=== PATIENT | female | born 1980 | race Caucasian/White ===

== ENCOUNTER 2020-10-20 11:23 | Inpatient (IN) | payer OTHER ==
[~2020-10-20] VITALS: Ht 149.9 cm; Wt 75.9 kg
[2020-10-20 12:36] LABS: GRAN # 3.6 (1.4-6.5); GRAN % 76.6 % (42.2-75.2); HEMOGLOBIN 10.5 g/dl (12.5-16.0); LYMPH # 0.8 (1.2-3.4); LYMPH % 16.9 % (20.0-51.0); MEAN CELL VOLUME 74 fl (80.0-100.0); MEAN CORPUSCULAR HEMOGLOBIN 22 pg (27.0-31.0); MEAN CORPUSCULAR HGB CONC 29 g/dl (33.0-37.0); MEAN PLATELET VOLUME 9.6 fl (7.4-10.4); MONO # 0.3 (0.1-0.6); MONO % 5.6 % (1.7-9.3); PLATELET COUNT 180 K/mm3 (130-400); RED BLOOD COUNT 4.88 M/mm3 (4.10-5.30); REDCELL DISTRIBUTION WIDTH-CV 17.6 % (11.5-14.5)
[2020-10-20 12:50] LABS: ALBUMIN 3.8 gm/dL (3.5-5.0); BILIRUBIN,TOTAL 0.3 mg/dL (0.0-1.0); CALCIUM 8.5 mg/dL (8.4-10.2); CREATININE, serum 0.82 (0.52-1.25); POTASSIUM 3.6 mmol/L (3.4-5.0); TOTAL PROTEIN 7.2 gm/dL (6.4-8.2)
[2020-10-20 13:07] LABS: C-REACTIVE PROTEIN 18.5 mg/dL (0.0-0.9)
--- NOTE | 2020-10-20 14:19 | NUR ---
Report recieved from GERARDO Frederick.
--- NOTE | 2020-10-20 15:00 | NUR ---
Patient admitted from the ED for low SATS r/t covid. Upon initial assessment, patient requiring 5L of O2 via nasal cannula, lungs sound diminished, patient not visibly SOA. Normal S1 and S2 sounds present, radial and pedal pulses +2 bilaterally, bowel sounds present in all four quadrants, patient A&O. VSS. Scheduled medication given. Patient denies any pain, discomfort, or further needs at this time. Will continue to monitor. Call light in reach.
[2020-10-20 15:30] VITALS: BP 126/76; PULSE 100; TEMP 99.9
[2020-10-20 15:37] VITALS: BP 126/76; PULSE 75; TEMP 99.9
[2020-10-20 18:36] VITALS: BP 122/81; PULSE 87; TEMP 98.7
[2020-10-20 21:20] VITALS: BP 129/83; PULSE 86; TEMP 98.1
--- NOTE | 2020-10-20 22:47 | NUR ---
Shift assessment completed. Patient alert and oriented. Patient currently on 5L via NC. Patient denies SOB or dyspnea while at rest. Patient denies any pain or discomfort. VS stable. No fever and no signs of respiratory distress noted. All scheduled meds given per JUN. Call light within reach. Will continue to monitor.
[2020-10-20 23:59] VITALS: BP 112/72; PULSE 81; TEMP 98.8
[2020-10-21 06:18] VITALS: BP 136/91; PULSE 86; TEMP 98.5
[2020-10-21 06:43] LABS: GRAN # 3.5 (1.4-6.5); GRAN % 77.5 % (42.2-75.2); HEMOGLOBIN 10.4 g/dl (12.5-16.0); LYMPH # 0.7 (1.2-3.4); LYMPH % 14.5 % (20.0-51.0); MEAN CELL VOLUME 75 fl (80.0-100.0); MEAN CORPUSCULAR HEMOGLOBIN 22 pg (27.0-31.0); MEAN CORPUSCULAR HGB CONC 29 g/dl (33.0-37.0); MEAN PLATELET VOLUME 9.8 fl (7.4-10.4); MONO # 0.3 (0.1-0.6); MONO % 6.7 % (1.7-9.3); PLATELET COUNT 186 K/mm3 (130-400); RED BLOOD COUNT 4.82 M/mm3 (4.10-5.30); REDCELL DISTRIBUTION WIDTH-CV 17.8 % (11.5-14.5)
[2020-10-21 06:46] LABS: HEMATOCRIT 35.9 % (37.0-47.0)
[2020-10-21 06:47] LABS: CREATININE, serum 0.53 (0.52-1.25); MAGNESIUM 2.1 mg/dL (1.6-2.3); POTASSIUM 3.7 mmol/L (3.4-5.0)
--- NOTE | 2020-10-21 07:51 | NUR ---
Scheduled medications given. Shift assessment preformed. Patient currently requiring 5L of 02 via nasal cannula. No signs of SOA at this time. Patient denies any N/V/D and is afebrile. Patient denies any pain, discomfort, or futher needs at this time. Will continue to monitor. Call light in reach.
[2020-10-21 08:40] VITALS: BP 119/68; PULSE 92; TEMP 99.2
--- NOTE | 2020-10-21 09:14 | NUR ---
The patient is COVID positive. SW contacted the patient's room phone to discuss discharge plan. The patient lives alone in [place]. She states that she does not have any family that lives nearby. She reports independence with ADLs and does not have any DME. The patient does not have a PCP. The patient was interested in getting set up with a PCP and getting a list of [facility] providers. SW collaborated with the PIT CLERK and the Infectious Control Nurse and asked that they bring in the list of providers to the patient, the next time the RN goes into the room. The patient does not have a DPOA-HC. She reports that she is not and does not have any children. Her parents are her next of kin: Kyle Vincent (ph#[phone]) and Salvatore Goddard. Kyle lives in [place], [place]. The patient plans to return home upon discharge. The patient is currently on 5 liters of oxygen. SW to continue to monitor. *Discharge plan: home*
[2020-10-21 11:43] VITALS: BP 137/82; PULSE 97; TEMP 98.6
--- NOTE | 2020-10-21 18:00 | NUR ---
Patient has had an ok day. VSS. Patient is currently requiring 5L of O2 and is experiencing dyspnea during exertion. Patient denies any pain, discomfort, or further needs at this time. Will continue to monitor. Call light in reach.
[2020-10-21 18:08] VITALS: BP 134/89; PULSE 94; TEMP 98.7
[2020-10-21 19:45] VITALS: BP 142/86; PULSE 108; TEMP 98.5
--- NOTE | 2020-10-21 23:19 | NUR ---
Pt has been ok but desat with exertion. Pt is currently on 5.5 L of o2. Will continue to monitor.
--- NOTE | 2020-10-21 23:48 | NUR ---
Pt desat without exertion. pt is currently on 7 L of o2. will continue to monitor.
[2020-10-22] VITALS: BP 137/88; PULSE 89; TEMP 98.9
[2020-10-22 04:34] VITALS: BP 133/88; PULSE 89; TEMP 99.1
--- NOTE | 2020-10-22 07:20 | NUR ---
Following report with GERARDO Zuniga, this nurse enters room briefly, RT just finishing in room. O2 provided via HFNC at 8 L/min. Pt denies further needs at this time. Call light in reach.
[2020-10-22 07:59] VITALS: BP 143/87; PULSE 89; TEMP 98.4
--- NOTE | 2020-10-22 08:40 | NUR ---
Assessment complete. Pt sitting up in bed, A&O x [address] providing 8 L/min O2. Pt reports pain to left abd that is stabbing and 9 out of 10 when coughing but 1 out of 10 when at rest. This nurse offers Tylenol but pt refuses at this time. PRN cough medicine offered and administered. Pt states, "they changed by nasal cannula to a bigger one that is now too big for my nose so I have to breathe through my mouth which dries out my throat and causes me to start coughing." This nurse discusses possibly switching to a mask, will review plan with RT and adjust accordingly. No further needs reported. Call light in reach.
--- NOTE | 2020-10-22 09:20 | NUR ---
HFNC and bubbler removed and replaced with oxymask, O2 remains at 8 L/min. Pt reports feeling more comfortable. This nurse reminds pt to call when needing to eat so we can change back to the HFNC, pt verbalizes understanding. No further needs reported. Call light in reach.
[2020-10-22 12:13] VITALS: BP 131/83; PULSE 85; TEMP 98.5
--- NOTE | 2020-10-22 15:00 | NUR ---
PRN pain medication administered per new order per pt's request d/t back pain occurring along with worsening abd pain with coughing. Provider notified of increased pain. No further needs reported. Call light in reach.
[2020-10-22 16:12] VITALS: BP 130/87; PULSE 84; TEMP 98.5
[2020-10-22 19:40] VITALS: BP 149/92; PULSE 86; TEMP 98.6
[2020-10-23] VITALS (7 sets, daily range): BP systolic 129–159; BP diastolic 82–100; PULSE 77–88; TEMP 98.1–99.1
--- NOTE | 2020-10-23 02:06 | NUR ---
Pt has been ok. Currently on 8 L HFNC. Pain rated 6/10. Narco was given. Will continue to monitor.
[2020-10-23 07:55] LABS: HEMATOCRIT 37.7 % (37.0-47.0); HEMOGLOBIN 10.9 g/dl (12.5-16.0); MEAN CELL VOLUME 75 fl (80.0-100.0); MEAN CORPUSCULAR HEMOGLOBIN 22 pg (27.0-31.0); MEAN CORPUSCULAR HGB CONC 29 g/dl (33.0-37.0); MEAN PLATELET VOLUME 9.9 fl (7.4-10.4); RED BLOOD COUNT 5.02 M/mm3 (4.10-5.30); REDCELL DISTRIBUTION WIDTH-CV 18.4 % (11.5-14.5)
[2020-10-23 07:55] LABS: ARTERIAL BLD GAS O2 SATURATION 92.9 % (92-100); ARTERIAL BLD GAS TCO2 CT 25.4; ARTERIAL BLOOD GAS BASE EXCESS 1.2 (-2-2); ARTERIAL BLOOD GAS HCO3 24.4 meq/L (22-26); ARTERIAL BLOOD GAS PCO2 33.7 mmHg (35-45); ARTERIAL BLOOD GAS PO2 64.6 mmHg (80-100); ARTERIAL BLOOD GAS pH 7.48 (7.35-7.45)
[2020-10-23 07:57] LABS: PLATELET COUNT 374 K/mm3 (130-400)
[2020-10-23 08:12] LABS: C-REACTIVE PROTEIN 3.2 mg/dL (0.0-0.9); CALCIUM 8.5 mg/dL (8.4-10.2); CREATININE, serum 0.67 (0.52-1.25); POTASSIUM 3.7 mmol/L (3.4-5.0)
--- NOTE | 2020-10-23 08:24 | NUR ---
Pt assessment complete. Pt is laying in bed upon entry, she is A/O x4. Her breathing is even and unlabored on Airvo, pt does get dyspneic with any movement. Dry cough present, refusing cough medication at this time. Reports intermittent LLQ pain to abdomen, no N/V. Pt has no further needs at this time. Call light within reach.
[2020-10-23 08:26] LABS: BAND 7 % (0-10); HYPOCHROMIA 1+; LYMPHOCYTE 16 % (20.0-51.0); NEUTROPHILS 72 % (42.0-75.2); OVALOCYTES 1+; PLATELET ESTIMATE NORMAL (NORMAL)
--- NOTE | 2020-10-23 19:00 | NUR ---
Pt continued on same amount of O2 via airvo, patient concerned how she will sleep and eat with oxygen in place. Importance of oxygen discussed with patient. Had little appetite, no N/V/D. Call light within reach.
--- NOTE | 2020-10-23 22:31 | NUR ---
PPt has been anxious being on Airvo.Pain rated 5/10. Narco was given.Will continue to monitor.
[2020-10-24 03:14] VITALS: BP 136/97; PULSE 66; TEMP 97.5
[2020-10-24 08:31] VITALS: BP 136/88; PULSE 70; TEMP 98.7
--- NOTE | 2020-10-24 09:13 | NUR ---
Patient requested assistance with using the bedside commode. This RN did so, patient urinated 750mL. Urine looked orange and slightly hazy, patient stated she was on day 4 of menstruation. Patient was sitting up in bed with legs crossed, pursed-lip breathing. When asking this patient how she was feeling, she stated, "I'm feeling okay right now". Patient was coughing during exertion, this RN did administer cough medication.
[2020-10-24 12:05] VITALS: BP 128/87; PULSE 79; TEMP 97.9
[2020-10-24 18:08] VITALS: BP 147/96; PULSE 80; TEMP 97.3
--- NOTE | 2020-10-24 18:46 | NUR ---
Patient has not had any complaints since this morning when she was experiencing an increase of SOB. Patient has been sitting up in bed watching tv whenever this RN checked on her. Patient has not called or had any requests.
[2020-10-24 19:26] VITALS: BP 142/94; PULSE 93; TEMP 98.9
--- NOTE | 2020-10-24 22:04 | NUR ---
Pt has been ok . Pain rated 0/10. VVS. Will continue to monitor.
[2020-10-24 23:03] VITALS: BP 139/93; PULSE 88; TEMP 97.5
[2020-10-25 03:02] VITALS: BP 147/95; PULSE 88; TEMP 98.4
[2020-10-25 07:07] VITALS: BP 139/85; PULSE 70; TEMP 98.4
--- NOTE | 2020-10-25 09:32 | NUR ---
Scheduled medications given. Shift assessment preformed. VSS. Patient is currently requiring 45L of O2 via airvo. Patient denies any N/V/D or pain. Patient is afebrile. Patient denies any further needs at this time. Will continue to monitor. Call light in reach.
[2020-10-25 12:00] VITALS: BP 149/95; PULSE 77; TEMP 99.1
--- NOTE | 2020-10-25 18:00 | NUR ---
Patient has had an ok day. Patient still requiring 45L of O2 via nasal cannula. Dr. Orellana updated on patient's status. Patient denies any N/V/D and is afebrile. VSS. Patient denies any pain, discomfort, or further needs at this time. Will continue to monitor. Call light in reach.
[2020-10-25 20:02] VITALS: BP 147/93; PULSE 85; TEMP 98.9
--- NOTE | 2020-10-25 21:31 | NUR ---
Shift assessment completed. Patient laying in bed upon enter the room. Patient A/Ox4. Patient currently on oxygen 45 L via Airvo. Breathing even and unlabored. Patient denies SOB or dyspnea while at rest. Occasional dry cough noted. Patient denies any pain, N/V, or diarrhea at this time. All scheduled meds given per JUN. Call light within reach. Will continue to monitor.
[2020-10-25 23:43] VITALS: BP 146/92; PULSE 78; TEMP 98.5
[2020-10-26 04:23] VITALS: BP 141/91; PULSE 68; TEMP 98.5
[2020-10-26 08:36] VITALS: BP 150/93; PULSE 73; TEMP 98.1
--- NOTE | 2020-10-26 08:50 | NUR ---
Pt assessment complete. Pt is sitting up in bed upon entry, she is A/O x4. Her breathing is even and unlabored on Airvo, denies SOB at rest. She denies any pain. Denies N/V, reports chronic diarrhea. No needs at this time. Call light within reach.
[2020-10-26 12:47] VITALS: BP 138/89; PULSE 78; TEMP 98.1
[2020-10-26 16:00] VITALS: BP 127/88; PULSE 89; TEMP 99
[2020-10-26 19:56] VITALS: BP 145/83; PULSE 89; TEMP 98.2
[2020-10-26 23:47] VITALS: BP 133/89; PULSE 78; TEMP 98
[2020-10-27 04:06] VITALS: BP 132/87; PULSE 70; TEMP 98.2
--- NOTE | 2020-10-27 06:20 | NUR ---
PATIENT HAS AN UNEVENFUL NIGHT. A+OX4, DENIES ANY PAIN OR NAUSEA/VOMITING. HAD LARGE BM LAST NIGHT ON BEDSIDE COMMODE. CONTINUE ON AIRVO 30L @ 30%. VSS AFEBRILE. WILL CONTINUE TO MONITOR.
[2020-10-27 08:22] VITALS: BP 133/84; PULSE 79; TEMP 97.9
--- NOTE | 2020-10-27 10:12 | NUR ---
Patient resting in bed upon entering the room. This RN assisted the patient with use of the bedside commode. Patient had no c/o pain, SOB, or cough. Patient did inquire about needing some papers faxed or given to her employer. This RN explained to the patient that the papers could not leave the room as they are now considered contaminated. This RN reassured the patient that we would attempt to find a way to get the forms to her employer.
[2020-10-27 11:41] VITALS: BP 131/86; PULSE 79; TEMP 98.1
[2020-10-27 15:34] LABS: HEMATOCRIT 37.2 % (37.0-47.0); HEMOGLOBIN 10.5 g/dl (12.5-16.0); MEAN CELL VOLUME 77 fl (80.0-100.0); MEAN CORPUSCULAR HEMOGLOBIN 22 pg (27.0-31.0); MEAN CORPUSCULAR HGB CONC 28 g/dl (33.0-37.0); MEAN PLATELET VOLUME 9.7 fl (7.4-10.4); PLATELET COUNT 504 K/mm3 (130-400); RED BLOOD COUNT 4.86 M/mm3 (4.10-5.30)
[2020-10-27 15:44] LABS: CALCIUM 8.2 mg/dL (8.4-10.2); CREATININE, serum 0.66 (0.52-1.25); POTASSIUM 4.6 mmol/L (3.4-5.0)
[2020-10-27 16:13] VITALS: BP 128/82; PULSE 86; TEMP 98.6
--- NOTE | 2020-10-27 17:09 | NUR ---
Patient has no c/o cough, CP, SOP. IV flushed and patient assisted to bedside commode.
[2020-10-27 19:57] VITALS: BP 124/78; PULSE 88; TEMP 98.3
--- NOTE | 2020-10-27 21:43 | NUR ---
Shift assessment completed. Patient A/O x4. Patient denies any pain or discomfort. Patient currently on Airvo 40L. Breathing even and unlabored. Patient denies SOB or dsypnea while at rest. VS stable. No acute respiratory distress noted. All scheduled meds given per JUN. Call light within reach. Will continue to monitor.
[2020-10-27 23:29] VITALS: BP 129/86; PULSE 74; TEMP 98.3
[2020-10-28 03:46] VITALS: BP 129/85; PULSE 73; TEMP 98
[2020-10-28 07:46] VITALS: BP 137/81; PULSE 76; TEMP 97.9
--- NOTE | 2020-10-28 10:34 | NUR ---
Patient doing well this morning and is no longer on airvo. Patient is on 6L via HFNC. She is tolerating it very well and has no c/o SOB, CP, or cough.
[2020-10-28 12:46] VITALS: BP 128/83; PULSE 89; TEMP 98.3
--- NOTE | 2020-10-28 13:26 | NUR ---
The patient is down to 6 liters of oxygen. STEPHANE contacted the patient to follow up and review d/c plan. The patient states that she still plans on returning home upon discharge and will have transportation back home. The patient reports that she does not have a PCP and is agreeable with getting set up with a provider in [place]. She reports that she would prefer a female provider. STEPHANE contacted Shanda, at [facility], to inquire if they are accepting any new providers. Shanda reports that they do not have any female providers accepting patients at this time. STEPHANE contacted scheduling at [facility]. The hr receptionist reports Dr. Tello and Dr. Estrada are accepting new patients and that the patient would be able to get in sooner with Dr. Tello. An acute new patient appointment for a hospital follow up was scheduled with on Tuesday, 11/10, at 0930. A new patient phone visit was scheduled on 11/12, at 1230. The patient's first appointment with Dr. Tello was scheduled on 02/09 at 0930. STEPHANE updated the patient on the above. She was in agreement to the appointments. STEPHANE informed the gunstock spray unit feeder of the appointments. *Discharge plan: home*
[2020-10-28 16:44] VITALS: BP 133/86; PULSE 85; TEMP 98.3
[2020-10-28 20:21] VITALS: BP 144/82; PULSE 92; TEMP 98.8
[2020-10-29 00:41] VITALS: BP 135/84; PULSE 76; TEMP 98
[2020-10-29 04:02] VITALS: BP 129/83; PULSE 73; TEMP 97.8
--- NOTE | 2020-10-29 05:27 | NUR ---
Resting quietly w/o complaint, currently on 4L HiFlo tolerating with 98% SPO2, denies pain, independent in cares, VS stable, updated on plan of care.
[2020-10-29 08:00] VITALS: BP 126/84; BP 141/77; PULSE 81; PULSE 96; TEMP 96.5; TEMP 98.6
--- NOTE | 2020-10-29 10:36 | NUR ---
RT notified SW that the patient qualified for 2 liters of oxygen. SW contacted the patient to update and informed her of the different DME companies. The patient was agreeable to getting the oxygen from [facility] [employer]. SW contacted and faxed the patient's oxygen order to Quin at [employer]. Awaiting delivery of oxygen.
[2020-10-29] MEDS ORDERED: PROAIR HFA0.09 MG/AC IH (10:45)
[2020-10-29] MEDS ORDERED: RT Albuterol HFA MDI IH (10:45)
[2020-10-29] MEDS ORDERED: OXYGEN (10:48)
[2020-10-29 12:05] VITALS: BP 126/80; PULSE 81; TEMP 98.5
--- NOTE | 2020-10-29 13:15 | NUR ---
DISCHARGE INSTRUCTIONS REVIEWED WITH PT. PT STILL ON OXYGEN. WAITING FOR PT HOME OXYGEN TO ARRIVE. ALL QUESTIONS ANSWERED. NO S/S OF DISTRESS NOTICED. IV ACCESS REMOVED.
--- NOTE | 2020-10-29 14:58 | NUR ---
STEPHANE followed up with Quin at [facility] on delivery of oxygen. Quin reports that their delivery specialist is leaving [place] now and will be here around 1600 with the oxygen. STEPHANE updated the patient's RN. The patient is to discharge back home today, 10/29. No additional needs at this time.
--- NOTE | 2020-10-29 17:34 | NUR ---
1700 PT DISCHARGED. USE OF OXYGEN TANKS EXPLAINED TO PT. PT CONNECTED TO PORTABLE OXYGEN AND DISCHARGED WITH HER FAMILY MEMBER.
== END 2020-10-29 17:15 | disposition home or self-care (01) | DRG 177 ==
LOC: COL.ER 11:23 → MEDICAL 13:05
PROVIDERS: Emergency Medicine; ADMIT Internal Medicine
PROC: XW033E5 Introduction of Remdesivir Anti-infective into Peripheral Vein, Percutaneous Approach, New Technology Group 5 (ICD-10-PCS; principal; 2020-10-21)
DX: U07.1 COVID-19 (principal); J12.82 Pneumonia due to coronavirus disease 2019; J96.01 Acute respiratory failure with hypoxia; E66.9 Obesity, unspecified; R10.32 Left lower quadrant pain; R50.9 Fever, unspecified; Z90.49 Acquired absence of other specified parts of digestive tract; Z68.34 Body mass index [BMI] 34.0-34.9, adult
CPT/HCPCS: 99223-AI; 99231-AI; 99232-AI; 99233-AI; 99239; J0696; J1100; J1650; J7030; J7050; J8540; Q0249